=== PATIENT | female | born 1975 | race Caucasian/White ===

== ENCOUNTER 2016-10-13 21:47 | Emergency (ER) ==
[2016-10-13 21:57] VITALS: TEMP 99; BMI 16.2
--- NOTE | 2016-10-13 22:16 | ED.PDOC ---
General ED Provider: Dr. ANABELLE DAS Chief Complaint: Cough Stated Complaint: Patient is a 40 year of female who smokes comes to the ER with complaints of head cold for a week and cough productive of white sputum but denies any fever. Took someone elses left over Biaxin daily for 4 days and had a nebulized breathing treatment form her mother today. Now feels better. states family members were ill this past week. Time Seen by Physician: 22:13 Mode of Arrival: Walk-In Information Source: Patient Exam Limitations: No limitations Primary Care Provider: VIOLET ODONNELL Nursing and Triage Documentation Reviewed and Agree: Yes Review of Systems - Review Of Systems Constitutional: Reports: No symptoms Eyes: Reports: No symptoms Ears, Nose, Mouth, Throat: Reports: No symptoms Respiratory: Reports: Cough Cardiac: Reports: Chest pain (with cough only. ) GI: Reports: No symptoms : Reports: No symptoms Musculoskeletal: Reports: No symptoms Skin: Reports: No symptoms Neurological: Reports: No symptoms Endocrine: Reports: No symptoms Hematologic/Lymphatic: Reports: No symptoms All Other Systems: Reviewed and Negative Past Medical History - Past Medical History Endocrine: Reports: None Cardiovascular: Reports: None Respiratory: Reports: None Hematological: Reports: None Gastrointestinal: Reports: None Genitourinary: Reports: None Neuro/Psych: Reports: Anxiety Musculoskeletal: Reports: None Cancer: Reports: None Last Menstrual Period: FEW DAYS AGO - Surgical History General Surgical History: Reports: None - Family History Family History: Reports: None - Social History Smoking Status: Current every day smoker, Heavy tobacco smoker Hx Substance Use: No Alcohol Screening: Occasionally - Immunizations Tetanus Shot up to Date: Yes Physical Exam - Physical Exam Appearance: Ill-appearing, Thin Eyes: DIANNE, EOMI, Conjunctiva clear ENT: Ears normal, Nose normal, Oropharynx normal Neck: Supple Respiratory: Airway patent, Breath sounds diminished, Wheezes (minimal ) GI/: Soft, Nontender, No masses, Bowel sounds normal, No Organomegaly Musculoskeletal: Normal strength, ROM intact, No edema, No calf tenderness Skin: Warm, Dry, Normal color Psychiatric: Anxious Interpretation - Radiology Interpretation Radiology Interpretation By: Radiologist Radiology Results: Negative Exam Interpreted: CXR Critical Care Note - Critical Care Note Total Time (mins): 0 Course - Course Orders, Labs, Meds: Orders Category Date Time Status NEBULIZER TREATMENT Stat CARDIO 10/13/16 22:43 Ordered Ipratropium/Albuterol Neb [Duoneb] MEDS 10/13/16 22:42 Discontinued 1 vial NEB ONCE STA CHEST, 2 VIEWS PA & LAT Stat RADS 10/13/16 22:23 Completed Medications Discontinued Medications Generic Name Dose Route Start Last Admin Trade Name Martha PRN Reason Stop Dose Admin Albuterol/Ipratropium 1 vial 10/13/16 22:42 10/13/16 23:02 Duoneb NEB 10/13/16 22:43 1 vial ONCE STA Administration Vital Signs: Temp Pulse Resp BP Pulse Ox 10/13/16 21:47 99 F 96 H 18 148/94 H 97 Departure - Departure Time of Disposition: 23:17 Disposition: HOME SELF-CARE Discharge Problem: Cough Instructions: Acute Cough (ED), Emphysema (ED) Condition: Stable Pt referred to PMD for follow-up: Yes Additional Instructions: Quite smoking Follow up with PCP in 3 days Use Inhaler as needed start steroids if symptoms returns. Prescriptions: Albuterol Sulfate [Proair Hfa] 2 puff IH Q6H PRN #1 puff PRN Reason: shortness of breath Methylprednisolone [Medrol Dosepak] 4 mg PO DIRECTED #1 pkg Allergies/Adverse Reactions: Allergies Penicillins Adverse Reaction (Verified 10/13/16 21:57) Home Medications: Ambulatory Orders Albuterol Sulfate [Proair Hfa] 2 puff IH Q6H PRN #1 puff 10/13/16 Carvedilol [Coreg] 25 mg PO DAILY PRN 10/13/16 Methylprednisolone [Medrol Dosepak] 4 mg PO DIRECTED #1 pkg 10/13/16 Disposition Discussed With: Patient
[2016-10-13] MEDS ORDERED: DUONEB NEB STA (22:42)
--- NOTE | 2016-10-13 23:11 | DI ---
EXAM: Chest two views HISTORY: Cough FINDINGS: Normal cardiac and mediastinal contours. Normal pulmonary vasculature. Lungs are clear. No significant abnormality of the bony thorax. IMPRESSION: Chest radiograph within normal limits.
[2016-10-13 23:28] VITALS: BP 137/94
== END 2016-10-13 23:28 | disposition home or self-care (01) ==
LOC: ED 21:47
DX: J43.9 Emphysema, unspecified (principal); R05 Cough; F17.210 Nicotine dependence, cigarettes, uncomplicated
CPT/HCPCS: 94640; 99283

== ENCOUNTER 2018-08-15 18:12 | Emergency (ER) ==
[2018-08-15 18:14] VITALS: BP 150/104; TEMP 98; BMI 15.5
--- NOTE | 2018-08-15 19:08 | ED.PDOC ---
General ED Provider: Dr. ANABELLE DAS Chief Complaint: Cough Stated Complaint: cough and conjestion for few days. Has been around family member with URI. Got short of breath today. Time Seen by Physician: 19:08 Mode of Arrival: Walk-In Information Source: Patient Primary Care Provider: VIOLET ODONNELL Nursing and Triage Documentation Reviewed and Agree: Yes Does patient meet sepsis criteria?: No System Inflammatory Response Syndrome: Not Applicable Sepsis Protocol: For patient's 13 years and over: Temp is 96.8 and below OR 101 and greater Pulse >90 BPM Resp >20/minute Acutely Altered Mental Status Are patient's symptoms suggestive of a new infection, such as: -Pneumonia -Skin, Soft Tissue -Endocarditis -UTI -Bone, Joint Infection -Implantable Device -Acute Abdominal Infection -Wound Infection -Meningitis -Blood Stream Catheter Infection -Unknown Review of Systems - Review Of Systems Constitutional: Reports: No symptoms Eyes: Reports: No symptoms Ears, Nose, Mouth, Throat: Reports: No symptoms Respiratory: Reports: Cough (and conjestion ), Short of air Cardiac: Reports: No symptoms GI: Reports: No symptoms : Reports: No symptoms Musculoskeletal: Reports: No symptoms Skin: Reports: No symptoms Neurological: Reports: No symptoms Endocrine: Reports: No symptoms Hematologic/Lymphatic: Reports: No symptoms All Other Systems: Reviewed and Negative Past Medical History - Past Medical History Endocrine: Reports: None Cardiovascular: Reports: None Respiratory: Reports: None Hematological: Reports: None Gastrointestinal: Reports: None Genitourinary: Reports: None Neuro/Psych: Reports: Anxiety Musculoskeletal: Reports: None Cancer: Reports: None Last Menstrual Period: UNKNOWN - Surgical History General Surgical History: Reports: None - Family History Family History: Reports: None - Social History Smoking Status: Current every day smoker, Heavy tobacco smoker Hx Substance Use: No Alcohol Screening: Occasionally - Immunizations Tetanus Shot up to Date: Yes Physical Exam - Physical Exam Appearance: Ill-appearing, No pain distress, Thin Ill-appearing: Mild Eyes: DIANNE, EOMI, Conjunctiva clear ENT: Ears normal, Nose normal, Oropharynx normal Neck: Supple Respiratory: Airway patent, Breath sounds diminished, Respirations nonlabored Cardiovascular: RRR, Pulses normal, No rub, No murmur GI/: Soft, Nontender, No masses, Bowel sounds normal, No Organomegaly Musculoskeletal: Normal strength, ROM intact, No edema, No calf tenderness Skin: Warm, Dry, Normal color Neurological: Sensation intact, Motor intact, Reflexes intact, Cranial nerves intact, Alert, Oriented Psychiatric: Anxious Critical Care Note - Critical Care Note Total Time (mins): 0 Course - Course Vital Signs: Temp Pulse Resp BP Pulse Ox 08/15/18 18:12 98.0 F 85 16 150/104 H 95 Departure - Departure Time of Disposition: 20:08 Disposition: HOME SELF-CARE Discharge Problem: Bronchitis Instructions: Acute Bronchitis (ED) Condition: Stable Pt referred to PMD for follow-up: Yes IPMP verified?: No Additional Instructions: Take medications as prescribed Follow up with PCP in 3 days Quit smoking Prescriptions: Albuterol Sulfate 0.083% Neb [Albuterol 0.083% Neb] 1 vial NEB RTQ8H #30 vial.neb Azithromycin [Zithromax] 250 mg PO DIRECTED #6 tablet Prednisone 20 mg PO DAILYWM #5 tablet Allergies/Adverse Reactions: Allergies Penicillins Adverse Reaction (Verified 08/15/18 18:14) Home Medications: Ambulatory Orders Carvedilol [Coreg] 25 mg PO DAILY PRN 10/13/16 Albuterol Sulfate 0.083% Neb [Albuterol 0.083% Neb] 1 vial NEB RTQ8H #30 vial.neb 08/15/18 Azithromycin [Zithromax] 250 mg PO DIRECTED #6 tablet 08/15/18 Prednisone 20 mg PO DAILYWM #5 tablet 08/15/18 Disposition Discussed With: Patient
== END 2018-08-15 20:15 | disposition home or self-care (01) ==
LOC: ED 18:12
DX: J40 Bronchitis, not specified as acute or chronic (principal); F17.210 Nicotine dependence, cigarettes, uncomplicated
CPT/HCPCS: 99282